=== PATIENT | female | born 1950 | race Caucasian/White ===

== ENCOUNTER → 2018-07-30 | Outpatient (CLI) | payer MEDICARE ==
--- NOTE | 2018-07-30 15:37 | EEG ---
DATE OF SERVICE: 07/30/2018 EEG NUMBER [id number] PERFORMED ON: 07/30/2018. OBJECTIVE: The patient is a 67-year-old female with epilepsy. DESCRIPTION: This is a digital study. Electrodes are placed according to international 10-20 system. Bipolar and referential montages are available. Activation procedures typically include hyperventilation and intermittent photic stimulation. INTERPRETATION: The waking background consists of 9-10 Hz, 50-100 microvolt activity, symmetrically distributed over parietooccipital regions and reactive to eye opening. Hyperventilation and intermittent photic stimulation are noncontributory. Stage 1 sleep is achieved with normal electroencephalogram patterns. All computer-identified spikes are reviewed and none show any significance. IMPRESSION: This electroencephalogram with the patient awake and asleep is within normal limits. There is no focal, paroxysmal, or epileptiform activity. Thank you for letting us help with the patient's care. SHERLYN SEGURA MD DR: STEPHANIE/elida JOB#: [id number] / [id number] FARZANEH Steele MD
== END | disposition home or self-care (01) ==
LOC: RT 08:21
PROVIDERS: ATTEND Psychiatry & Neurology Neurology with Special Qualifications in Child Neurology
DX: G40.909 Epilepsy, unspecified, not intractable, without status epilepticus (principal)
CPT/HCPCS: 95816

== ENCOUNTER → 2018-10-13 | Outpatient (CLI) | payer MEDICARE ==
[~2018-10-13] MED LIST: REGADENOSON 0.4 MG/5 ML DISP.SYRIN. IV ONE
--- NOTE | 2018-10-13 11:16 | CARD ---
MR#: [id number] Date of Study: 10/13/2018 Ordering Physician: LUKAS TRAYLOR, Referring Physician: LUKAS TRAYLOR Tech: Allison Medeiros RDCS APPROVED REPORT EXAM: Two-dimensional and M-mode echocardiogram with Doppler and color Doppler. Other Information Quality : AverageHR: 67bpm Rhythm : NSRTechnically limited study due to body habitus. INDICATION Chest Pain 2D DIMENSIONS RVDd3.1 (2.9-3.5cm)Left Atrium(2D)3.2 (1.6-4.0cm) IVSd0.8 (0.7-1.1cm)Aortic Root(2D)2.4 (2.0-3.7cm) LVDd4.7 (3.9-5.9cm)LVOT Diameter1.7 (1.8-2.4cm) PWd1.1 (0.7-1.1cm)LVDs3.1 (2.5-4.0cm) FS (%) 35.5 %SV67.5 ml LVEF(%)64.9 (>50%) M-Mode DIMENSIONS Left Atrium(MM)3.77 (2.5-4.0cm)Aortic Root2.38 (2.2-3.7cm) Aortic Valve AoV Peak Jhonny.158.7cm/sAoV VTI39.2cm AO Peak GR.10.1mmHgLVOT Peak Jhonny.97.8cm/s AO Mean GR.6mmHgAVA (VMAX)1.41cm2 J CARLOS (VTI)1.50cm2 Mitral Valve MV E Vtzvlfdy61.8cm/sMV DECEL DYKT408cl MV A Pfqebqnn07.9cm/sE/A Ratio1.2 Pulmonary Valve PV Peak Ikvtbnya37.3cm/s Tricuspid Valve TR P. Ffmoysoj998ln/sRAP KFKMCIBG2lcZh TR Peak Gr.26tkShKJSI37bnRy Pulmonary Vein S1 Kpjptobq10.5cm/sD2 Txvtlyfv75.7cm/s PVa ercudjak903izbt LEFT VENTRICLE The left ventricle is normal size. There is normal left ventricular wall thickness. The left ventricu lar systolic function is normal and the ejection fraction is within normal range. The Ejection Fracti on is 60-65%. There is normal LV segmental wall motion. Transmitral Doppler flow pattern is Grade II- pseudonormal filling dynamics. RIGHT VENTRICLE The right ventricle is normal size. There is normal right ventricular wall thickness. The right ventr icular systolic function is normal. ATRIA The left atrium size is normal. The right atrium size is normal. The interatrial septum is intact wit h no evidence for an atrial septal defect or patent foramen ovale as noted on 2-D or Doppler imaging. AORTIC VALVE Not well visualized. Doppler and Color Flow revealed no significant aortic regurgitation. There is no significant aortic valvular stenosis. MITRAL VALVE The mitral valve is thickened but opens well. There is no evidence of mitral valve prolapse. There is no mitral valve stenosis. Doppler and Color-flow revealed trace mitral regurgitation. TRICUSPID VALVE The tricuspid valve is normal in structure and function. Doppler and Color Flow revealed trace tricus pid regurgitation. The PA pressure was estimated at 28 mmHg. There is no tricuspid valve prolapse or vegetation. There is no tricuspid valve stenosis. PULMONIC VALVE The pulmonic valve is not well visualized. GREAT VESSELS The aortic root is normal in size. The ascending aorta is normal in size. The IVC is normal in size a nd collapses >50% with inspiration. PERICARDIAL EFFUSION There is no evidence of significant pericardial effusion. Critical Notification Critical Value: No <Conclusion> The left ventricular systolic function is normal and the ejection fraction is within normal range. Th e Ejection Fraction is 60-65%. There is normal LV segmental wall motion. Signed by : Eduardo Randall, Electronically Approved : 10/13/2018 11:15:57
--- NOTE | 2018-10-13 12:13 | RAD ---
MR#: [id number] Date of Study: 10/13/2018 Ordering Physician: LUKAS TRAYLOR, Referring Physician: ROBIN CONDE Tech: RT Harshil (R) (N) APPROVED REPORT Test Type: Pharmacological Stress Nurse/Tech: Sharla Boo R.N. Test Indications: chest pain Cardiac History: Family history, Hypertension, smoker Medications: See Electronic Medical Record Medical History: See Electronic Medical Record Resting ECG: s sheree Resting Heart Rate: 58 bpm Resting Blood Pressure: 152/70mmHg Pretest Chest Pain: No chest pain Nurse/Tech Notes S1S2, lungs sound clear Consent: The procedure was explained to the patient in lay terms. Informed consent was witnessed. Felix eout was entered into [employer]. History and Stress Test performed by Sharla Boo R.N. Pharm. Details Pharmacologic stress testing was performed using 0.4mg per 5ml of regadenoson given intravenously ove r 7-10 seconds. Stress Symptoms Dyspnea POST EXERCISE Reason for Termination: Infusion complete Target HR: 130 Max HR: 93 bpm Max Blood Pressure: 152/69mmHg Blood Pressure response to exercise: Normal blood pressure response during stress. Chest Pain: No. Arrhythmia: No. ST Change: No. INTERPRETATION Stress EKG Conclusion: The resting EKG shows a sinus rhythm and mild T wave changes. The stress EKG shows no significant changes from baseline. No EKG evidence of stress induced ischemia. Imaging Protocol IMAGE PROTOCOL: Rest Tc-99m/stress Tc-99m 1 day Rest: Stress: Viability: Radiopharm.Tc99m TyhrnsedgFt74a Sestamibi Dose10.6mCi 30.6mCi Duration 13min. 13min. Img Date 10/13/2018 10/13/2018 Inj-Img Mhte70phn. 60min. Rest Admin Site:IV - Right AntecubitalAdministrator:RT Marizol (R)(N) Stress Admin Site: IV - Right AntecubitalAdministrator: RT Marizol (R)(N) STRESS DATA End Diast. Vol.91.0mlLVEDV index BSA48.0ml End Syst. Vol.23.0mlLVESV index BSA12.0ml Myocardial Ymce366.0gEject. Opmqnnye72.0% Stress Scores Regional WT0.00Summed WT4.00 Regional WM0.00Summed WM0.00 LV Perfusion The stress scans show no significant defects. The rest scans show no significant defects. Nuclear imaging shows no reversible ischemia or infarct. Wall Motion LV systolic function is nomal with an ejection fraction of > 70%. LV Perf. Quant 17 Seg. SSS5.00 17 Seg. SRS7.00 17 Seg. SDS1.00 Stress Defect Extent (% LAD)4.40Rest Defect Extent (% LAD)7.50Rev. Defect Extent (% LAD)0.00 Stress Defect Extent (% LCX) 0.00Rest Defect Extent (% LCX)0.00Rev. Defect Extent (% LCX)0.00 Stress Defect Extent (% RCA)4.40Rest Defect Extent (% RCA)24.40Rev. Defect Extent (% RCA)0.00 Stress Defect Extent (% DAMARI)4.30Rest Defect Extent (% DAMARI)12.80Rev. Defect Extent (% DAMARI)0.00 Conclusion 1. No EKG evidence of stress induced ischemia. 2. Nuclear images show no reversible ischemia or infarct. 3. Normal LV systolic function with an ejection fraction of > 70%. 4. Low risk Lexiscan nuclear stress test. Signed by : Anthony Willingham MD Electronically Approved : 10/13/2018 12:13:41
== END | disposition home or self-care (01) ==
LOC: NM 07:40
PROVIDERS: ATTEND Internal Medicine Cardiovascular Disease
DX: R07.9 Chest pain, unspecified (principal); R06.00 Dyspnea, unspecified; I10 Essential (primary) hypertension; F17.200 Nicotine dependence, unspecified, uncomplicated; Z88.2 Allergy status to sulfonamides; Z88.8 Allergy status to other drugs, medicaments and biological substances
CPT/HCPCS: 78452; 93017; 93306; A9500; J2785

== ENCOUNTER → 2018-10-28 | Outpatient (CLI) | payer MEDICARE ==
--- NOTE | 2018-10-28 11:13 | RAD ---
MR#: [id number] Date of Study: 10/28/2018 Ordering Physician: LUKAS TRAYLOR, Referring Physician: LUKAS TRAYLOR, Tech: Davin Morales MBA, RDMS, RVT, RDCS, RTR APPROVED REPORT Patient Location : OUT-PATIENT Indications Varicose Veins Findings Limited grayscale images of the saphenofemoral junctions do not reveal any obvious evidence of thromb us. The right great saphenous vein measures 5.5 mm in the left great saphenous vein measures 5.1 mm. The greater saphenous veins do not show any evidence of reflux on color Doppler and spectral imaging. Similarly, the bilateral lesser saphenous veins also do not show any evidence of reflux. Critical Notification Critical Value: No <Conclusion> 1. No evidence of reflux in the bilateral greater and lesser saphenous veins. Signed by : Eduardo Randall, Electronically Approved : 10/28/2018 11:13:00
== END | disposition home or self-care (01) ==
LOC: US 11:02
PROVIDERS: ATTEND Internal Medicine Cardiovascular Disease
DX: I83.813 Varicose veins of bilateral lower extremities with pain (principal)
CPT/HCPCS: 93970

== ENCOUNTER → 2020-02-03 | Outpatient (CLI) | payer MEDICARE ==
--- NOTE | 2020-02-03 16:12 | KCIC ---
CT for coronary artery calcium scoring, without IV contrast, 02/03/2020 4:08 PM INDICATION: Reason: Coronary artery disease, family hx. heart disease, smoker 50+ years. / Spl. Instructions: / History: Technique: Noncontrast CT images through the coronary arteries was performed . Findings: No significant noncardiac findings are identified. Visual inspection of the coronary arteries Demonstrates calcification within the LAD and right coronary artery. The remaining coronary arteries are without discernible calcified plaque. The computer-generated calcium scoring utilizing AJ-130 criteria are as follows: Left Main Artery: 0. Left Anterior Descending Artery: 2.4. Left Circumflex Artery: 0. Right Coronary Artery: 26.9. The total calcium score is 29.3. Impression: Your total calcium score is 29.3. Plaque is present. This correlates with mild heart disease and a moderate risk for a myocardial infarction. Table: 0: No plaque is present. The chance of significant heart disease is less than 5%, and corresponds to a very low risk for a myocardial infarction. 1-10: A small amount of plaque is present. The chance of significant heart disease is less than 10%, and corresponds to a low risk for a myocardial infarction. 11-100: Plaque is present. This correlates with mild heart disease and a moderate risk for a myocardial infarction. 101-400: A moderate amount of plaque is present. This correlates with heart disease, and a moderate to high risk for a myocardial infarction. Over 400: A large amount of plaque is present. This correlates with a greater than 90% chance of a high grade stenosis. The risk for myocardial infarction is high. CT DOSING PQRS STATEMENT: One or more of the following individualized dose reduction techniques were utilized for this examination: 1. Automated exposure control 2. Adjustment of the mA and/or kV according to patient size 3. Use of iterative reconstruction technique Electronically signed by: Collin Godinez MD (02/03/2020 4:09 PM) [id number]
--- NOTE | 2020-02-04 10:09 | RAD ---
MR#: [id number] Date of Study: 02/03/2020 Ordering Physician: LUKAS TRAYLOR, Referring Physician: LUKAS TRAYLOR, Tech: APPROVED REPORT Patient Location: OUT-PATIENT Risk Factors Hypertension Smoking Waveforms Right Left Prox Mid Distal Prox Mid Distal Subcl. Subcl. Dndm-urnddlIbvm-taywbd Axillary Axillary Jones-phasic Brachial Brachial Mope-pbpicdBrwp-qzcerwDapo-phasic Radial Radial Gycx-vpixgsLsdp-kbbkre Ulnar Ulnar Rrnr-toxlplQvzk-wyvwad Velocities Right Left Prox Mid Distal Prox Mid Distal Subcl. Subcl. 78.0cm/s80.0cm/s Axillary Axillary 78.0cm/s Brachial Brachial 71.0cm/s70.0cm/s82.0cm/s Radial Radial 37.0cm/s31.0cm/s Ulnar Ulnar 41.0cm/s47.0cm/s Findings Grayscale images of the left upper extremity arterial vessels demonstrates mild to moderate diffuse p laque. Spectral waveforms are monophasic from the subclavian artery to the radial and ulnar arteries. No fo bushra high-grade obstruction is noted in these vessels throughout the left upper extremity with normal velocities. Due to monophasic waveforms throughout the left upper extremity, cannot rule out a more proximal brachial obstruction and clinical correlation is recommended. Critical Notification Critical Value: No <Conclusion> 1. No clear evidence of arterial stenosis involving the visualized vessels of the left upper extremi ty. 2. The left upper extremity demonstrates MONOPHASIC waveforms throughout its entirety, this may sugg est an ostial subclavian artery stenosis and clinical correlation is recommended. 3. Consider CT angiography of the chest and neck if high clinical suspicion for subclavian steal or o stial subclavian disease. Signed by : Eduardo Randall, Electronically Approved : 02/04/2020 10:08:45
== END ==
LOC: KCIC CT 14:10
PROVIDERS: ATTEND Internal Medicine Cardiovascular Disease
DX: Z13.6 Encounter for screening for cardiovascular disorders (principal); I70.208 Unspecified atherosclerosis of native arteries of extremities, other extremity; I77.1 Stricture of artery; I25.10 Atherosclerotic heart disease of native coronary artery without angina pectoris; I51.9 Heart disease, unspecified; F17.210 Nicotine dependence, cigarettes, uncomplicated; Z82.49 Family history of ischemic heart disease and other diseases of the circulatory system
CPT/HCPCS: 75571; 93931

== ENCOUNTER → 2020-08-26 | Outpatient (CLI) | payer MEDICARE ==
[~2020-08-26] MED LIST changes: +ALPR0.254 PO; +CITA20TA6 PO; +EZET10TA20 PO; +FAMO20TA5 PO; +LOSA50TA15 PO; -REGADENOSON 0.4 MG/5 ML DISP.SYRIN. IV ONE
== END ==
LOC: LAB 09:35
PROVIDERS: ATTEND Internal Medicine Cardiovascular Disease
DX: Z01.812 Encounter for preprocedural laboratory examination (principal); I77.1 Stricture of artery; Z20.822 Contact with and (suspected) exposure to COVID-19
CPT/HCPCS: U0003; U0005

== ENCOUNTER 2020-08-29 08:22 | Outpatient (CLI) | payer MEDICARE ==
[~2020-08-29] VITALS: Ht 165.1 cm; Wt 73.5 kg
[2020-08-29] VITALS (11 sets, daily range): BP systolic 119–164; BP diastolic 57–77
[~2020-08-29 08:22] MED LIST changes: -ALPR0.254 PO; -CITA20TA6 PO; -EZET10TA20 PO; -FAMO20TA5 PO; +IODIXANOL 320 MG/ML 100 ML VIAL. ONE; +LIDOCAINE 1% Multi-Dose 20 ML VIAL. ONE; -LOSA50TA15 PO
[2020-08-29] MEDS ORDERED: LOSA50TA15 PO (08:39)
[2020-08-29] MEDS ORDERED: CITA20TA6 PO (08:39)
[2020-08-29] MEDS ORDERED: ALPR0.254 PO (08:39)
[2020-08-29] MEDS ORDERED: FAMO20TA5 PO (08:39)
[2020-08-29] MEDS ORDERED: EZET10TA20 PO (08:39)
[2020-08-29 09:12] LABS: HEMATOCRIT 46.5 % (36.0-47.0); HEMOGLOBIN 15.8 g/dL (12.0-15.5); RED BLOOD COUNT 4.99 x10^6/uL (3.50-5.40); RED CELL DISTRIBUTION WIDTH 13.3 % (11.5-14.5); WHITE BLOOD COUNT 5.4 x10^3/uL (4.0-11.0)
[2020-08-29] MEDS ORDERED: fentaNYL PF VIAL 100 MCG/2 ML VIAL ONE (09:13)
[2020-08-29] MEDS ORDERED: MIDAZOLAM HCL/PF 5 MG/5 ML VIAL. ONE (09:13)
[2020-08-29 09:19] LABS: CALCIUM 8.9 mg/dL (8.5-10.1); CREATININE 0.6 mg/dL (0.6-1.0); GFR 99.4; POTASSIUM 4.3 mmol/L (3.5-5.1)
--- NOTE | 2020-08-29 09:19 | PDOC ---
MODERATE SEDATION ASSESSMENT RISKS/ALTERNATIVES Risks/Alternatives Risks and alternatives of this type of sedation and procedure discussed with: RISK/ALTERNATIVES: Patient H & P ON CHART H & P H & P on chart and reviewed for co-morbid conditions and appropriate labs. H&P ON CHART: Yes STATUS PREG STATUS ASSESSED: N/A MEDS/ALLERGIES REVIEWED Meds/Allergies Reviewed Medications and Allergies including time and route of recently administered narcotics and sedatives. MEDS/ALLERGIES REVIEWED: Yes ASA RATING ASA RATING: II AIRWAY ASSESSMENT Airway Assessment Airway patency, oral function limitations, presence of caps, crowns, dentures, partials, and ability to extend neck assessed. AIRWAY ASSESSMENT: Yes MALLAMPATI SCORE MALLAMPATI SCORE: II PRE-SEDATION ASSESSMENT PRE-SEDATION ASSESSMENT: Yes LUKAS TRAYLOR MD August 29, 2020 09:19
[2020-08-29 09:21] LABS: PROTHROMBIN TIME PATIENT 12.4 SEC (11.7-14.0)
[2020-08-29] MEDS ORDERED: HEPARIN for IV BOLUS 10,000 UNIT/10 ML VIAL. ONE (09:58)
[2020-08-29] MEDS ORDERED: LIDOCAINE 1% PF 2 ML VIAL. ONE (10:12)
[2020-08-29] MEDS ORDERED: VERAPAMIL 5 MG/2 ML VIAL. ONE (10:12)
[2020-08-29] MEDS ORDERED: NITROGLYCERIN 200 MCG/2 ML SYRINGE FOR CATH/VASC LAB. ONE (10:12)
[2020-08-29] MEDS ORDERED: MIDAZOLAM HCL/PF 5 MG/5 ML VIAL. IV ONE (10:15)
[2020-08-29] MEDS ORDERED: IODIXANOL 320 MG/ML 100 ML VIAL. IART ONE (10:15)
[2020-08-29] MEDS ORDERED: fentaNYL PF VIAL 100 MCG/2 ML VIAL IV ONE (10:15)
[2020-08-29] MEDS ORDERED: LIDOCAINE 1% Multi-Dose 20 ML VIAL. INJ ONE (10:15)
[2020-08-29] MEDS ORDERED: NITROGLYCERIN 200 MCG/2 ML SYRINGE FOR CATH/VASC LAB. IART ONE (10:30)
[2020-08-29] MEDS ORDERED: VERAPAMIL 5 MG/2 ML VIAL. IART ONE (10:30)
[2020-08-29] MEDS ORDERED: HEPARIN for IV BOLUS 10,000 UNIT/10 ML VIAL. IART ONE (10:30)
[2020-08-29] MEDS ORDERED: LIDOCAINE 1% PF 2 ML VIAL. INJ ONE (10:45)
[2020-08-29] MEDS ORDERED: IV 1/2 NORMAL SALINE 1,000 ML IV SCH (10:45)
--- NOTE | 2020-08-29 11:01 | CARD ---
MR#: [id number] Date of Study: 08/29/2020 Ordering Physician: KOLTON MUNIZ, Referring Physician: KOLTON MUNIZ, Tech: Raghav Aguilar RT(R)() APPROVED REPORT Patient StatusOUT-PATIENT Tool And Die Machinist: Raghav Aguilar RT(R)() Procedure(s) performed: Arch aortogram and selective left subclavian angiography MODERATE SEDATION TIME: 53 MINUTES FLUORO TIME: 4.3 MIN DOSE: 5 GYCM2 CONTRAST: 63CC VISI INDICATION FOR PROCEDURE The indication(s) include : Left subclavian artery stenosis and symptoms suspicious for subclavian st eal. PROCEDURE NARRATIVE After explaining the risk, benefits and alternative options, informed consent was obtained from patie nt. Patient was brought to the cardiac International Student Counselor and her right groin was prepped and draped in the us ual fashion. 20 cc of 2% lidocaine was infiltrated into the skin and subcutaneous tissues for local anesthesia. Arterial access was obtained in the right common femoral artery and a 6 Malian sheath wa s inserted. 6 Malian pigtail catheter was positioned in the ascending aorta and arch aortogram was p erformed. 6 Malian JR4 catheter was then used to engage the left subclavian artery selectively and a ngiography was performed. Since this showed chronic total occlusion, her left wrist was prepped and draped in the usual fashion and arterial access in the left radial artery obtained and 6 Malian sheat h inserted. The 6 Malian JR4 catheter was then advanced through the radial artery sheath and with th e tip positioned in the left subclavian artery distal to the occlusion angiography was performed. Gilberto davidson tolerated the procedure well. Hemostasis in the left wrist was achieved using TR band and righ t groin using Angio-Seal. There were no immediate complications. FINDINGS 1. The right brachiocephalic artery did not show any significant stenosis proximally. 2. The left common carotid artery did not show any significant stenosis proximally. 3. The left subclavian artery showed 100% chronic total occlusion in the proximal segment with dista l reconstitution from collaterals. The vertebral artery showed reversal of flow. 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 Recommendations Since the occlusion of the left subclavian artery is chronic and extending close to the takeoff of th e vertebral artery and since there is distal reconstitution from collaterals we will manage this cons ervatively without any intervention. If she becomes very symptomatic in the future, surgical revascu larization could be considered. Signed by : Kolton Muniz, Electronically Approved : 08/29/2020 11:01:05
--- NOTE | 2020-08-29 13:30 | NUR ---
Patient's PIV removed. No bleeding at fem or radial site. L wrist re-dressed/TR band removed, armboard re-applied. Extensive education provided on site care, sedation. Patient and verbalized understanding. VS stable, no bleeding. Patient taken to private vehicle via wheelchair. driving.
== END 2020-08-29 13:30 | disposition home or self-care (01) ==
LOC: CCL 08:22
PROVIDERS: ATTEND Internal Medicine Cardiovascular Disease
DX: I73.9 Peripheral vascular disease, unspecified (principal); I77.1 Stricture of artery; I10 Essential (primary) hypertension; F41.9 Anxiety disorder, unspecified; F32.9 Major depressive disorder, single episode, unspecified; F17.210 Nicotine dependence, cigarettes, uncomplicated; Z79.899 Other long term (current) drug therapy; Z90.49 Acquired absence of other specified parts of digestive tract; Z98.890 Other specified postprocedural states; Z88.2 Allergy status to sulfonamides; Z88.8 Allergy status to other drugs, medicaments and biological substances
CPT/HCPCS: 36225; 36415; 75605; 75710; 80048; 85027; 85610; 99152; 99153; C1760; C1769; C1892; C1894; J1644; J2250; J3010; J3490; Q9967; G0269

== ENCOUNTER → 2021-04-17 | Outpatient (CLI) | payer MEDICARE ==
[2020-08-29 12:50] VITALS: BP 134/59
[~2021-04-17] MED LIST changes: +ALPR0.254 PO; +CITA20TA6 PO; +EZET10TA20 PO; +FAMO20TA5 PO; -IODIXANOL 320 MG/ML 100 ML VIAL. ONE; -LIDOCAINE 1% Multi-Dose 20 ML VIAL. ONE; +LOSA50TA15 PO; +REGADENOSON 0.4 MG/5 ML DISP.SYRIN. IV ONE
--- NOTE | 2021-04-17 16:17 | CARD ---
MR#: [id number] Date of Study: 04/17/2021 Ordering Physician: LUKAS TRAYLOR, Referring Physician: LUKAS TRAYLOR Tech: Katharine Dunbar [facility] APPROVED REPORT EXAM: Two-dimensional and M-mode echocardiogram with Doppler and color Doppler. Other Information Quality : AverageHR: 59bpm Rhythm : NSR INDICATION Cardiac Disease: CAD RISK FACTORS Hypertension Hyperlipidemia 2D DIMENSIONS RVDd3.3 (2.9-3.5cm)Left Atrium(2D)3.5 (1.6-4.0cm) IVSd0.9 (0.7-1.1cm)Aortic Root(2D)2.7 (2.0-3.7cm) LVDd4.8 (3.9-5.9cm)LVOT Diameter1.9 (1.8-2.4cm) PWd0.8 (0.7-1.1cm)LVDs3.6 (2.5-4.0cm) FS (%) 24.5 %SV52.9 ml Aortic Valve AoV Peak Jhonny.188.6cm/sAoV VTI38.9cm AO Peak GR.14.2mmHgLVOT Peak Jhonny.133.2cm/s AO Mean GR.6mmHgAVA (VMAX)1.98cm2 Mitral Valve MV E Dgdnojan937.7cm/sMV DECEL CYMT381vp MV A Ytlkzzgw90.2cm/sE/A Ratio1.1 Tricuspid Valve TR P. Afkubvwc030xi/sTR Peak Gr.23mmHg LEFT VENTRICLE The left ventricle is normal size. There is normal left ventricular wall thickness. The left ventricu lar systolic function is normal and the ejection fraction is within normal range. LV ejection fracti on is 55 to 60%. There is normal LV segmental wall motion. The left ventricular diastolic function an d filling is normal for age. RIGHT VENTRICLE The right ventricle is normal size. There is normal right ventricular wall thickness. The right ventr icular systolic function is normal. ATRIA The left atrium size is normal. The right atrium size is normal. The interatrial septum is intact wit h no evidence for an atrial septal defect or patent foramen ovale as noted on 2-D or Doppler imaging. AORTIC VALVE The aortic valve is normal in structure and function. Doppler and Color Flow revealed no significant aortic regurgitation. There is no significant aortic valvular stenosis. MITRAL VALVE The mitral valve is normal in structure and function. There is no evidence of mitral valve prolapse. There is no mitral valve stenosis. Doppler and Color-flow revealed trace mitral regurgitation. TRICUSPID VALVE The tricuspid valve is normal in structure and function. Doppler and Color Flow revealed trace tricus pid regurgitation. Estimated PAP 28-30 mmHg. There is no tricuspid valve stenosis. PULMONIC VALVE The pulmonary valve is normal in structure and function. Doppler and Color Flow revealed no pulmonic valvular regurgitation. GREAT VESSELS The aortic root is normal in size. The ascending aorta is normal in size. The IVC is normal in size a nd collapses >50% with inspiration. PERICARDIAL EFFUSION There is no evidence of significant pericardial effusion. Critical Notification Critical Value: No <Conclusion> The left ventricle is normal size. The left ventricular systolic function is normal and the ejection fraction is within normal range. LV ejection fraction is 55 to 60%. There is normal LV segmental wall motion. Doppler and Color Flow revealed no significant aortic regurgitation. There is no significant aortic valvular stenosis. Doppler and Color-flow revealed trace mitral regurgitation. Doppler and Color Flow revealed trace tricuspid regurgitation. Estimated PAP 28-30 mmHg. Signed by : Anthony Willingham MD Electronically Approved : 04/17/2021 16:16:41
--- NOTE | 2021-04-17 17:06 | RAD ---
MR#: [id number] Date of Study: 04/17/2021 Ordering Physician: LUKAS TRAYLOR, Referring Physician: ROBIN CONDE Tech: PINA Duncan ARRT (R) (N) APPROVED REPORT Test Type: Pharmacological Stress Nurse/Tech: Dwain Medrano RN Test Indications: CAD Cardiac History: COPD, high cholesterol, smoker, CVA Medications: See Electronic Medical Record Medical History: See Electronic Medical Record Resting ECG: SR Resting Heart Rate: 60 bpm Resting Blood Pressure: 119/62mmHg Pretest Chest Pain: None Nurse/Tech Notes Lungs CTA, S1S2 Consent: The procedure was explained to the patient in lay terms. Informed consent was witnessed. Felix eout was entered into [employer]. History and Stress Test performed by PINA Duncan ARRT (R) (N) Pharm. Details Pharmacologic stress testing was performed using 0.4mg per 5ml of regadenoson given intravenously ove r 7-10 seconds. Stress Symptoms No chest pain or symptoms. POST EXERCISE Reason for Termination: Infusion complete Max HR: 90 bpm Max Blood Pressure: 119/62mmHg Blood Pressure response to exercise: Normal blood pressure response during stress. Heart Rate response to exercise: normal response Chest Pain: No. Arrhythmia: Yes. PVC, tachycardia INTERPRETATION Stress EKG Conclusion: The resting EKG shows a sinus rhythm with mild ST-T wave changes. The stress EKG shows no significant changes from baseline. No EKG evidence of stress-induced ischemia. Imaging Protocol IMAGE PROTOCOL: Rest Tc-99m/stress Tc-99m 1 day Rest: Stress: Viability: Radiopharm.Tc99m MjydxwmdoWw73d Sestamibi Dose9.8mCi 31mCi Img Date 04/17/2021 04/17/2021 Inj-Img Fvrk58kjz. 60min. Rest Admin Site:IV - Right AntecubitalAdministrator:PINA Duncan ARRT (R)(N) Stress Admin Site: IV - Right AntecubitalAdministrator: RT Derek FontanaR)(N) STRESS DATA End Diast. Vol.88.0mlLVEDV index BSA47.0ml End Syst. Vol.22.0mlLVESV index BSA12.0ml Myocardial Rnnm620.0gEject. Itsljscw04.0% Stress Scores Regional WT0.00Summed WT3.00 Regional WM0.00Summed WM0.00 LV Perfusion The stress scans show mild inferior wall thinning. The rest scans showed mild inferior wall thinning. Nuclear imaging shows no reversible ischemia. Nuclear imaging shows fixed mild inferior wall thinning most consistent with an attenuation defect. Wall Motion Left ventricular systolic function is normal with no regional wall motion abnormalities and an ejecti on fraction of greater than 75%. LV Perf. Quant 17 Seg. SSS4.00 17 Seg. SRS6.00 17 Seg. SDS0.00 Stress Defect Extent (% LAD)4.40Rest Defect Extent (% LAD)11.30Rev. Defect Extent (% LAD)0.00 Stress Defect Extent (% LCX) 0.00Rest Defect Extent (% LCX)0.00Rev. Defect Extent (% LCX)0.00 Stress Defect Extent (% RCA)4.40Rest Defect Extent (% RCA)8.90Rev. Defect Extent (% RCA)0.00 Stress Defect Extent (% DAMARI)6.70Rest Defect Extent (% DAMARI)10.70Rev. Defect Extent (% DAMARI)0.00 Conclusion 1. No EKG evidence of stress-induced ischemia. 2. Nuclear imaging shows no reversible ischemia. 3. Nuclear imaging shows mild fixed inferior wall thinning most consistent with an attenuation artifa ct. 4. Normal LV systolic function with no regional wall motion abnormalities and an ejection fraction of greater than 75%. 5. Moderately low risk Lexiscan nuclear stress test. Signed by : Anthony Willingham MD Electronically Approved : 04/17/2021 17:05:48
== END ==
LOC: NM 12:05
PROVIDERS: ATTEND Internal Medicine Cardiovascular Disease
DX: I25.10 Atherosclerotic heart disease of native coronary artery without angina pectoris (principal)
CPT/HCPCS: 78452; 93017; 93306; A9500; J2785